=== PATIENT | female | born 1995 ===

== ENCOUNTER → 2017-12-19 | Outpatient (CLI) | payer BC, OTHER ==
--- NOTE | 2017-12-20 09:07 | US ---
EXAM DESCRIPTION: Pelvis Transvaginal: Ultrasound. CLINICAL HISTORY: DYSPAREUNIA COMPARISON: None. TECHNIQUE: Endovaginal scanning and transpelvic scanning through the urine filled bladder: Gauthier-scale and Doppler modes. FINDINGS: Uterus 8.4 x 5.1 x 3.9 cm. Endometrial thickness is 6 mm. Myometrium appears homogeneous. Uterus not retroflexed. Cervix unremarkable.. Cul-de-sac contains minimal fluid. Right ovary 2.9 x 2.7 x 1.4 cm. Normal waveform and color Doppler vascularity. Small follicles but no cysts. No adnexal mass or free fluid. Left ovary 3.0 x 2.9 x 2.7 cm. Normal waveform and color Doppler vascularity. 2.5 x 2.4 x 2.2 cm cyst. Simple appearance. Nonvascular. No adnexal mass; minimal free fluid. IMPRESSION: 1. Enlarged left ovary with 2.5 cm simple cyst, nonvascular.* Normal vascularity of the ovary. Minimal free fluid 2. Small follicles but no cyst in the right ovary. Normal vascularity. 3. Normal position of the uterus. No endometrial thickening or fluid. Minimal fluid in the cul-de-sac. *2.5 cm simple ovarian cyst No follow-up imaging is recommended. Reference: Radiology 2010 Oct;256(3):943-54 Electronically signed by: Feliciano Cuevas MD 12/20/2017 9:06 AM [facility]
== END ==
LOC: US 09:50
PROVIDERS: ATTEND Nurse Practitioner Family
DX: N94.10 Unspecified dyspareunia (principal); N83.202 Unspecified ovarian cyst, left side